=== PATIENT | female | born 2000 | race Caucasian/White ===

== ENCOUNTER 2019-02-03 06:13 | Inpatient (IN) | payer MEDICAID ==
[2019-02-03] MEDS ORDERED: LIDOCAINE 1% (MPF) 30 ML INJ INJ (07:00)
[2019-02-03] MEDS ORDERED: AMPICILLIN 2 GM/NS (PMX) 100 ML IV (07:00)
[2019-02-03] MEDS ORDERED: OXYTOCIN 30 UNITS/LR 500 ML IV ×3 (07:00→23:30)
[2019-02-03] MEDS ORDERED: MISOPROSTOL 200 MCG TAB PR ×2 (07:00→23:30)
[2019-02-03] MEDS ORDERED: METHYLERGONOVINE 0.2 MG INJ IM ×2 (07:00→23:30)
[2019-02-03] MEDS ORDERED: CARBOPROST 250 MCG INJ IM ×2 (07:00→23:30)
[2019-02-03] MEDS: LACTATED RINGER'S 1,000 ML IV ×4 (08:00→20:43)
[2019-02-03 08:15] LABS: ADD MAN DIFF? NO
[2019-02-03 08:18] LABS: BASOPHILS % 0.3 % (0.0-2.0); EOSINOPHILS % 0.3 % (0.0-7.0); HEMATOCRIT 38.2 % (37.0-47.0); HEMOGLOBIN 12.9 g/dl (12.0-16.0); LYMPHOCYTES # 1.5 10^3/ul (0.8-2.9); LYMPHOCYTES % 18.7 % (18.0-55.0); MEAN CORPUSCULAR HEMOGLOBIN 31.3 pg (29.0-33.0); MEAN CORPUSCULAR HGB CONC 33.8 g/dl (32.0-37.0); MEAN CORPUSCULAR VOLUME 92.7 fl (72.0-104.0); MEAN PLATELET VOLUME 10.8 fl (7.4-10.4); MONOCYTE # 0.7 10^3/ul (0.3-0.9); MONOCYTES % 9.4 % (0.0-13.0); NEUTROPHIL # 5.5 10^3/ul (1.6-7.5); NEUTROPHILS % 70.5 % (30.0-74.0); PLATELET COUNT 248 10^3/UL (140-415); RED BLOOD COUNT 4.12 10^6/ul (4.20-5.40); RED CELL DISTRIBUTION WIDTH 14.1 % (11.5-14.5)
[2019-02-03 08:18] LABS: WHITE BLOOD COUNT 7.7 10^3/ul (4.8-10.8)
[2019-02-03 08:40] LABS: INR 0.89; PROTIME 12.1 Sec (11.9-14.9); PT RATIO 0.9
[2019-02-03 08:41] LABS: PARTIAL THROMBOPLASTIN TIME 28.8 Sec (23.0-35.0)
[2019-02-03 09:08] LABS: HEPATITIS B SURFACE ANTIGEN NEGATIVE (NEGATIVE)
[2019-02-03] MEDS ORDERED: AMPICILLIN 1 GM/NS (PMX) 50 ML IV (11:00)
[2019-02-03] MEDS: OXYTOCIN 30 UNITS/LR 500 ML IV ×3 (13:19→23:25)
[2019-02-03] MEDS: BUTORPHANOL 2 MG INJ IV (14:46)
[2019-02-03 14:55] LABS: RAPID PLASMA REAGIN NONREACTIVE (NR)
[2019-02-03] MEDS ORDERED: FENTAnyl 2MCG/ML-ROPIV 0.2% 100 ML (17:35)
[2019-02-03] MEDS: AMPICILLIN 2 GM/NS (PMX) 100 ML IVPB (19:00)
[2019-02-03] MEDS ORDERED: NALOXONE (0.4 MG/ML) INJ IV (21:00)
[2019-02-03] MEDS ORDERED: FENTAnyl 2MCG/ML-ROPIV 0.2% 100 ML BAG EPI (21:00)
[2019-02-03] MEDS ORDERED: MINERAL OIL LIGHT 10 ML VIAL TOP (21:30)
[2019-02-03] MEDS ORDERED: AMPICILLIN 1 GM/NS (PMX) 50 ML IVPB (22:00)
[2019-02-03] MEDS: LACTATED RINGER'S 1,000 ML IV* (23:25)
[2019-02-04] MEDS: IBUPROFEN 600 MG TAB PO ×5 (00:17→23:32)
[2019-02-04] MEDS: BENZOCAINE 20% 56 ML SPRAY TOP (02:25)
[2019-02-04] MEDS: LANOLIN HPA 1 PKT TOP (02:25)
[2019-02-05] MEDS: HYDROCODONE/APAP (5/325) TAB PO ×3 (04:26→22:53)
[2019-02-05] MEDS: IBUPROFEN 600 MG TAB PO ×3 (05:48→17:49)
[2019-02-05 06:51] LABS: ADD MAN DIFF? NO
[2019-02-05 06:56] LABS: WHITE BLOOD COUNT 8.8 10^3/ul (4.8-10.8)
[2019-02-05 06:56] LABS: BASOPHILS % 0.3 % (0.0-2.0); EOSINOPHILS # 0.1 10^3/ul (0.0-0.5); EOSINOPHILS % 1.1 % (0.0-7.0); HEMATOCRIT 35.8 % (37.0-47.0); HEMOGLOBIN 11.8 g/dl (12.0-16.0); LYMPHOCYTES # 1.8 10^3/ul (0.8-2.9); LYMPHOCYTES % 19.9 % (18.0-55.0); MEAN CORPUSCULAR HEMOGLOBIN 31.6 pg (29.0-33.0); MEAN CORPUSCULAR VOLUME 95.7 fl (72.0-104.0); MEAN PLATELET VOLUME 10.6 fl (7.4-10.4); MONOCYTE # 0.6 10^3/ul (0.3-0.9); MONOCYTES % 6.8 % (0.0-13.0); NEUTROPHIL # 6.3 10^3/ul (1.6-7.5); NEUTROPHILS % 71.2 % (30.0-74.0); PLATELET COUNT 199 10^3/UL (140-415); RED BLOOD COUNT 3.74 10^6/ul (4.20-5.40); RED CELL DISTRIBUTION WIDTH 14.4 % (11.5-14.5)
[2019-02-05] MEDS: DIPHTH/TET/ACEL PERTUSS (ADULT) 0.5 ML VIAL IM* (09:00)
[2019-02-05 13:41] LABS: CREATININE 0.59 mg/dl (0.44-1.00)
[2019-02-05 13:41] LABS: BLOOD UREA NITROGEN 11 mg/dl (7-20)
[2019-02-05] MEDS: BUTORPHANOL 2 MG INJ IV (14:09)
[2019-02-05] MEDS: SOD CHLORIDE 0.9% 100 ML (14:31)
[2019-02-05] MEDS: IOHEXOL 300MG/ML 150 ML BTL (14:31)
[2019-02-05] MEDS: BENZOCAINE 20% 56 ML SPRAY TOP (23:33)
[2019-02-06 00:18] LABS: ADD MAN DIFF? NO
[2019-02-06 00:22] LABS: WHITE BLOOD COUNT 8.4 10^3/ul (4.8-10.8)
[2019-02-06 00:22] LABS: BASOPHILS % 0.2 % (0.0-2.0); EOSINOPHILS # 0.1 10^3/ul (0.0-0.5); EOSINOPHILS % 1.2 % (0.0-7.0); HEMATOCRIT 38.6 % (37.0-47.0); LYMPHOCYTES # 1.7 10^3/ul (0.8-2.9); LYMPHOCYTES % 20.3 % (18.0-55.0); MEAN CORPUSCULAR HEMOGLOBIN 31.7 pg (29.0-33.0); MEAN CORPUSCULAR HGB CONC 33.7 g/dl (32.0-37.0); MEAN CORPUSCULAR VOLUME 94.1 fl (72.0-104.0); MEAN PLATELET VOLUME 10.4 fl (7.4-10.4); MONOCYTE # 0.6 10^3/ul (0.3-0.9); MONOCYTES % 6.9 % (0.0-13.0); NEUTROPHIL # 5.9 10^3/ul (1.6-7.5); NEUTROPHILS % 70.7 % (30.0-74.0); PLATELET COUNT 237 10^3/UL (140-415); RED CELL DISTRIBUTION WIDTH 13.9 % (11.5-14.5)
[2019-02-06] MEDS: IBUPROFEN 600 MG TAB PO ×3 (00:33→11:55)
[2019-02-06 00:38] LABS: ADD UMIC YES; UR ASCORBIC ACID NEGATIVE (NEGATIVE); UR BILIRUBIN (Dip) NEGATIVE (NEGATIVE); UR BLOOD (Dip) 3+ mg/dL (NEGATIVE); UR CLARITY CLEAR (CLEAR); UR COLOR STRAW (YELLOW); UR GLUCOSE (Dip) NEGATIVE (NEGATIVE); UR KETONES (Dip) NEGATIVE (NEGATIVE); UR LEUKOCYTE ESTERASE (Dip) NEGATIVE Leu/ul (NEGATIVE); UR NITRITE (Dip) NEGATIVE (NEGATIVE); UR RBC 157 /HPF (0-5); UR SPECIFIC GRAVITY (Dip) 1.008 (1.003-1.030); UR SQUAMOUS EPITHELIAL CELL FEW /HPF (FEW); UR TOTAL PROTEIN (Dip) NEGATIVE (NEGATIVE); UR TRANSITIONAL EPI CELL FEW /HPF (NONE SEEN); UR UROBILINOGEN (Dip) NEGATIVE (NEGATIVE); UR WBC 5 /HPF (0-5)
[2019-02-06 00:40] LABS: ALANINE AMINOTRANSFERASE 23 IU/L (13-69); ALBUMIN 3.5 g/dl (3.3-4.9); ALKALINE PHOSPHATASE 115 IU/L (42-121); ANION GAP 6 (5-13); ASPARTATE AMINO TRANSFERASE 28 IU/L (15-46); BILIRUBIN,INDIRECT 0.4 mg/dl (0-1.1); BILIRUBIN,TOTAL 0.4 mg/dl (0.2-1.3); BLOOD UREA NITROGEN 13 mg/dl (7-20); CALCIUM 9.2 mg/dl (8.4-10.2); CARBON DIOXIDE 27 mmol/L (21-31); CHLORIDE 106 mmol/L (97-110); CREATININE 0.87 mg/dl (0.44-1.00); Estimated GFR > 60 mL/min (>60); GLUCOSE 98 mg/dl (70-220); POTASSIUM 3.9 mmol/L (3.5-5.1); SODIUM 139 mmol/L (135-144); TOTAL PROTEIN 6.4 g/dl (6.1-8.1)
[2019-02-06] MEDS: MAGNESIUM HYDROXIDE 30ML CUP PO (01:45)
== END 2019-02-06 14:25 | disposition home or self-care (01) | DRG 807 ==
LOC: OBT 06:13 → PP1 02-04 01:12 → L-D 06:14 → OBT 06:22 → L-D 06:22
PROVIDERS: Obstetrics & Gynecology
PROC: 10E0XZZ Delivery of Products of Conception, External Approach (ICD-10-PCS; principal; 2019-02-03)
PROC: 0HQ9XZZ Repair Perineum Skin, External Approach (ICD-10-PCS; 2019-02-03)
DX: O70.0 First degree perineal laceration during delivery (principal); Z37.0 Single live birth; O90.89 Other complications of the puerperium, not elsewhere classified; R10.813 Right lower quadrant abdominal tenderness; Z3A.39 39 weeks gestation of pregnancy
CPT/HCPCS: 62322; 74177; 80053; 81001; 82565; 84520; 85025; 85610; 85730; 86592; 86850; 86900; 86901; 87340; 99464